=== PATIENT | female | born 1945 | race Caucasian/White ===

== ENCOUNTER → 2016-02-24 | Outpatient (CLI) | payer MEDICARE ==
--- NOTE | 2016-02-25 08:38 | XR ---
Bilateral orbits are HISTORY: Trauma, swelling 6 views of the orbits are submitted. No comparisons Orbits appear intact. Bone mineralization is maintained. Metallic density within the mouth may be rel ated to dental implant. There is opacification of the left maxillary sinus, correlate for sinusitis, hemorrhage not excluded. Irregularity of the nasal bones, correlate for point tenderness on the left, fracture not excluded. IMPRESSION: Correlate clinically for point tenderness left maxillary sinus. Possible nasal bone fract ure, CT scan may be of benefit. Additional findings above.
== END | disposition home or self-care (01) ==
LOC: RADXRYALE 16:23
PROVIDERS: ATTEND Physician Assistant Medical
DX: R22.0 Localized swelling, mass and lump, head (principal); R29.6 Repeated falls; Z51.81 Encounter for therapeutic drug level monitoring; Z79.01 Long term (current) use of anticoagulants
CPT/HCPCS: 70200; 85025

== ENCOUNTER → 2016-02-25 | Outpatient (CLI) | payer MEDICARE ==
--- NOTE | 2016-02-25 09:31 | CT ---
EXAMINATION TYPE: CT brain wo con DATE OF EXAM: 02/25/2016 9:18 AM COMPARISON: 12/27/2015 INDICATION: Frequent falls DLP: 981.7 mGycm, Automated exposure control for dose reduction was used. CONTRAST: CT scan of the head is performed , patient injected with mL of . CT of the brain is performed utilizing 3 mm thick sections through the posterior fossa and 3 mm thick sections through the remaining calvarium. Study is performed within 24 hours of arrival to the hosp [facility]. No abnormal hyperdensity is present to suggest an acute intracranial hemorrhage. No mass lesion is evident. No acute infarcts are evident. Some subtle periventricular white matter hypodensity may be present, l ikely on the basis of chronic white matter ischemic changes. Significant change from December 2015 is not evident. Ventricles and sulci are appropriate for the patient age. Paranasal sinuses and mastoid air cells within the [id number] are clear. No acute or subacute fractures are evident. IMPRESSIONS: 1. No acute intracranial process.
== END | disposition home or self-care (01) ==
LOC: RADCTMAIN 08:54
PROVIDERS: ATTEND Physician Assistant Medical
DX: R29.6 Repeated falls (principal); Z51.81 Encounter for therapeutic drug level monitoring; Z79.01 Long term (current) use of anticoagulants
CPT/HCPCS: 70450

== ENCOUNTER → 2017-10-05 | Outpatient (CLI) | payer MEDICARE ==
--- NOTE | 2017-10-06 13:02 | MM ---
Reason for exam: screening (asymptomatic). Last mammogram was performed 2 years and 9 months ago. History: Patient is postmenopausal and history of other cancer. Family history of breast cancer in paternal aunt and breast cancer in aunt. Took estrogen for 10 years beginning at age 49. Physical Findings: A clinical breast exam by your physician is recommended on an annual basis and results should be correlated with mammographic findings. MG 3D Screening Mammo W/Cad Bilateral CC and MLO view(s) were taken. Prior study comparison: January 08, 2015, bilateral MG screening mammo w CAD. December 13, 2013, bilateral MG screening mammo w CAD. There are scattered fibroglandular densities. Stable benign calcifications. There is no discrete abnormality. No significant changes when compared with prior studies. ASSESSMENT: Benign, BI-RAD 2 RECOMMENDATION: Routine screening mammogram of both breasts in 1 year.
== END | disposition home or self-care (01) ==
LOC: RADMAMWWP 11:46
PROVIDERS: ATTEND Family Medicine
DX: Z12.31 Encounter for screening mammogram for malignant neoplasm of breast (principal)
CPT/HCPCS: 77063; 77067

== ENCOUNTER → 2017-11-17 | Outpatient (CLI) | payer MEDICARE ==
--- NOTE | 2017-11-18 10:29 | XR ---
Chest x-ray with left RIBS HISTORY: Left posterior rib pain, trauma 3 days prior View of the chest and 4 views of the left ribs submitted. There is an S-shaped thoracic lumbar scoliosis. Postop changes are noted in the lumbar spine. Mild ky phosis centered at the lower thoracic spine. Patient is rotated. No evident pneumothorax or pleural e ffusion. Heart size is likely within normal limits accounting for technique. The aorta is dense. No evident displaced rib fracture. IMPRESSION: Bone scan could be performed for increased sensitivity if occult fracture is suspected cl inically. Additional findings above. No definite acute abnormality.
== END ==
LOC: RADXRYALE 16:56
PROVIDERS: ATTEND Physician Assistant Medical
DX: M54.6 Pain in thoracic spine (principal); R07.89 Other chest pain

== ENCOUNTER → 2017-12-18 | Outpatient (CLI) | payer MEDICARE ==
--- NOTE | 2017-12-18 08:57 | CT ---
EXAMINATION TYPE: CT brain wo con DATE OF EXAM: 12/18/2017 COMPARISON: 02/25/2016. HISTORY: Syncope and collapse CT DLP: 999.8 mGycm Automated exposure control for dose reduction was used. FINDINGS: There are mild changes of atrophy. There is diffuse periventricular white matter lucency, compatible with chronic ischemic change. There is no acute focal lesion, mass effect or midline shift identified . I do not see evidence of intracranial blood. There is mucoperiosteal thickening involving the left maxillary sinus. The remainder the paranasal si nuses and mastoids are clear. The bony calvarium is intact. IMPRESSION: 1. NO ACUTE INTRACRANIAL ABNORMALITY. 2. MILD DEGENERATIVE CHANGE. 3. CHRONIC LEFT MAXILLARY SINUS MUCOSAL DISEASE.
== END | disposition home or self-care (01) ==
LOC: RADCTMAIN 08:28
PROVIDERS: ATTEND Family Medicine
DX: G31.9 Degenerative disease of nervous system, unspecified (principal); J32.0 Chronic maxillary sinusitis
CPT/HCPCS: 70450

== ENCOUNTER → 2021-07-22 | Outpatient (CLI) | payer MEDICARE ==
--- NOTE | 2021-07-22 19:02 | BD ---
EXAMINATION TYPE: Axial Bone Density DATE OF EXAM: 07/22/2021 CLINICAL HISTORY: 75 years year old Female. ICD-10 CODE: M859 DISORDER OF BONE DENSITY AND STRUCTURE Height: 5 FT 1 IN Weight: 185 FRAX RISK QUESTIONS: Alcohol (3 or more units per day): NO Family History (Parent hip fracture): NO Glucocorticoids (More than 3mos): NO (Ex: prednisone, prednisolone, methylprednisolone, dexamethasone, and hydrocortisone). History of Fracture in Adulthood: NO Secondary Osteoporosis: 1. Type 1 Diabetes: NO 2. Hyperthyroidism: NO 3. Menopause before 45: NO 4. Malnutrition: NO 5. Chronic liver disease: NO Rheumatoid Arthritis: NO Current Tobacco Use: NO RISK FACTORS HISTORY OF: Surgery to Spine/Hip(right/left)/Wrist (right/left): LUMBAR SURG When: 2003 Family History of Osteoporosis: NO Active: NO Diet low in dairy products/other sources of calcium: NO Postmenopausal woman: YES Take estrogen and/or progesterone medications: NO Lost more than 2 inches in height since high school: YES Frequent falls: YES Poor Health: POOR Hyperparathyroidism: NO Adrenal Insufficiency: NO MEDICATIONS: Additional Medications: CHOLESTEROL MEDS, ATENOLOL, H2O PILL, ALP JOSI NOL, DEPRESSION MEDS,FENTYNOL PATCH Additional History: EXAM MEASUREMENTS: Bone mineral density about the R hip (g/cm2): 0.915 Bone mineral density about the L hip (g/cm2): 0.908 T Score values are as follows: -----R Neck: -0.9 -----L Neck: -0.9 -----R Total: 0.1 -----L Total: 0.6 Bone mineral density has: DECREASED -2.8 % since study of: 2016 Bone mineral density about the L Wrist (g/cm2): 0.724 T Score values are as follows: -----Dist. R+U: 1.9 -----Prox. R+U: 0.4 -----Radius total: 0.8 FIRST TIME WRIST HAS BEEN DONE FRAX%s: The graph provided illustrates a 3.1 % chance for a major osteoporotic fx and a 0.6 % chance for the hips probability for fx in 10 years time. IMPRESSION: Normal (Values between +1 and -1 indicate normal bone mass). However, note that measurements are bord ering on osteopenia at both hips. Consider repeating this study in 5 years or sooner if there is some new clinical indication. NOTE: T-SCORE=SD OF THE YOUNG ADULT MEAN.
--- NOTE | 2021-07-23 10:10 | MM ---
Reason for Exam: Screening (asymptomatic). Last mammogram was performed 3 year(s) and 10 month(s) ago. Patient History: Menarche at age 14. First Full-Term at age 18. Postmenopausal. Other cancer. Estrogen for 10 years from age 49 until age 59. Paternal aunt had breast cancer. Maternal aunt had breast cancer. Risk Values: Janine 5 year model risk: 1.3%. NCI Lifetime model risk: 3.0%. Prior Study Comparison: 12/13/2013 Bilateral Screening Mammogram, [facility]. 01/08/2015 Bilateral Screening Mammogram, [facility]. 10/05/2017 Bilateral Screening Mammogram, [facility]. Tissue Density: There are scattered fibroglandular densities. Findings: Analyzed By CAD. There are benign-appearing linear and vascular calcifications redemonstrated throughout both breasts. There is no suspicious group of microcalcifications or new suspicious mass in either breast. Overall Assessment: Benign, BI-RAD 2 Management: Screening Mammogram of both breasts in 1 year. A clinical breast exam by your physician is recommended on an annual basis and results should be correlated with mammographic findings. Electronically signed and approved by: Matt Jordan M.D.
== END | disposition home or self-care (01) ==
LOC: RADMAMWWP 07:30
PROVIDERS: ATTEND Family Medicine
DX: Z12.31 Encounter for screening mammogram for malignant neoplasm of breast (principal); Z78.0 Asymptomatic menopausal state; Z80.3 Family history of malignant neoplasm of breast
CPT/HCPCS: 77063; 77067; 77080

== ENCOUNTER → 2023-08-06 | Outpatient (CLI) | payer MEDICARE ==
--- NOTE | 2023-08-06 14:37 | XR ---
EXAMINATION TYPE: XR cervical spine comp DATE OF EXAM: 08/06/2023 2:12 PM CLINICAL INDICATION:Female, 77 years old with history of M542 CERVICALGIA; [facility] COMPARISON: 12/24/2015. TECHNIQUE: The cervical spine was imaged in frontal, lateral, odontoid and bilateral oblique. FINDINGS: The osseous structures show normal alignment without evidence of an acute fracture. There are osteoph ytes noted throughout the cervical spine on the anterior and lateral aspects of the vertebral bodies. The intervertebral disk spaces are narrowed at multiple levels. Pedicles are intact. Soft tissues a re within normal limits. The odontoid appears intact. IMPRESSION: 1. No fracture or dislocation. 2. Mild degenerative disc disease changes of the cervical spine.
== END | disposition home or self-care (01) ==
LOC: RADXRYALE 13:56
PROVIDERS: ATTEND Physician Assistant Medical
DX: M50.30 Other cervical disc degeneration, unspecified cervical region (principal)
CPT/HCPCS: 72050

== ENCOUNTER → 2023-08-18 | Outpatient (CLI) | payer MEDICARE ==
--- NOTE | 2023-08-26 12:46 | MM ---
Reason for Exam: Screening (asymptomatic). Last mammogram was performed 2 year(s) and 1 month(s) ago. Patient History: Menarche at age 14. First Full-Term at age 18. Postmenopausal. Other cancer. Estrogen for 10 years from age 49 until age 59. Paternal aunt had breast cancer. Maternal aunt had breast cancer. Risk Values: Janine 5 year model risk: 1.3%. NCI Lifetime model risk: 2.6%. Prior Study Comparison: 01/08/2015 Bilateral Screening Mammogram, [facility]. 10/05/2017 Bilateral Screening Mammogram, [facility]. 07/22/2021 Bilateral MG 3D screening mammo w/cad, [facility]. Tissue Density: There are scattered areas of fibroglandular density. Findings: Analyzed By CAD. The pattern is symmetrical. No significant interval change is evident. Benign calcifications present bilaterally. No suspicious groups of microcalcifications, spiculated or lobular masses, architectural distortion or other secondary signs of malignancy are mammographically apparent. Overall Assessment: Benign, BI-RAD 2 Management: Screening Mammogram of both breasts in 1 year. A negative mammogram report should not preclude additional follow up of suspicious palpable abnormalities. Patient should continue monthly self breast exam. A clinical breast exam by your physician is recommended on an annual basis and results should be correlated with mammographic findings. Note on Janine scores and lifetime risk: 1. A Janine score greater than 3% is considered moderate risk. If this is the case, consider specialist referral to assess eligibility for a risk reducing agent. 2. If overall lifetime risk for the development of breast cancer is 20% or higher, the patient may qualify for future screening with alternating mammogram and breast MRI. Electronically signed and approved by: Calvin Villavicencio D.O. Radiologis
== END | disposition home or self-care (01) ==
LOC: RADMAMWWP 16:00
PROVIDERS: ATTEND Family Medicine
DX: Z12.31 Encounter for screening mammogram for malignant neoplasm of breast (principal); Z78.0 Asymptomatic menopausal state; Z80.3 Family history of malignant neoplasm of breast
CPT/HCPCS: 77063; 77067